=== PATIENT | male | born 1990 | race Two or more races ===

== ENCOUNTER 2020-03-14 21:35 | Emergency (ER) | payer OTHER ==
[~2020-03-14] VITALS: Ht 185.4 cm; Wt 127.0 kg
[2020-03-14] MEDS ORDERED: Neosporin Oint Ud Pkt TOPIC ONE (22:15)
[2020-03-14] MEDS ORDERED: ceFAZolin 2gm/50ml Premix 50 ML IVPB SCH (22:15)
--- NOTE | 2020-03-14 22:15 | Emergency Room Report ---
History of Present Illness General Chief Complaint: Animal Bite Source: Patient Present Illness HPI Patient is a 29-year-old male denies any significant past medical history who presents to the ER complaining of dog bites to his left upper extremity. Patient states that he was bit by his own dog who is a pit bull and lab mix. Patient states that his last tetanus was less than 5 years ago. Patient states that the incident occurred 1 hour prior to arrival. Patient denies any other trauma. He denies any fever or chills. 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 Patient History Reviewed Nursing Documentation: PMH: Agreed; PSxH: Agreed Nursing Documentation-PM Past Medical History: No Stated History Review of Systems All Other Systems: negative except mentioned in HPI Physical Exam Vital Signs Date Time Temp Pulse Resp B/P (MAP) Pulse Ox O2 Delivery O2 Flow Rate FiO2 03/14/20 21:41 98.2 90 18 137/79 (98) 97 Room Air Sp02 EP Interpretation: reviewed, normal General Appearance: no apparent distress, alert, GCS 15, non-toxic Head: normocephalic, atraumatic Eyes: bilateral eye normal inspection, bilateral eye PERRL ENT: hearing grossly normal, normal pharynx, no angioedema, normal voice Neck: full range of motion, supple/symm/no masses Respiratory: chest non-tender, lungs clear, normal breath sounds, speaking full sentences Cardiovascular #1: regular rate, rhythm, no edema Gastrointestinal: normal bowel sounds, non tender, soft, non-distended, no guarding, no rebound, overweight Rectal: deferred Genitourinary: no CVA tenderness Musculoskeletal: other - For dog bites 1 to the left wrist horizontal volar surface with minimal fat exposed approximately 3 cm, second is a puncture wound to the left wrist proximal to the ulnar styloid, third is a 6 cm superficial laceration left mid forearm volar surface fourth is a puncture wound to the left thenar eminence all wounds have some surrounding ecchymosis and swelling mild tenderness to palpation no active bleeding Neurologic: masonry installer III-XII nml as tested, oriented x3 Psychiatric: no suicidal/homicidal ideation Skin: no rash Lymphatic: no adenopathy Medical Decision Making Diagnostic Impression: Primary Impression: Bite by animal ER Course Local wound care has been performed. Patient given 900 mg of IV clindamycin. Patient given a sling to help him elevate his left upper extremity. Patient given very strict return precautions for any signs of local infection. Tetanus up-to-date. After discussing risks and benefits of further diagnostics, treatment plans, as well as indications for and risks of admission, the patient is agreeable to being discharged home. I have explained that their evaluation and treatment in the emergency department today is an important step towards them achieving better health but that their evaluation today is not intended to replace further evaluation and treatment by a physician in their local clinic. I have explained that while the current findings suggest no immediate life threatening emergency they will require further evaluation and treatment by a physician of their choice in their area. They understand that it will be necessary for them to review the final reports of their ED visit with their clinic physician. We have reviewed indications for return to the Emergency Department. I have explained that additional time may need to pass and/or additional testing as an outpatient may be necessary before a definitive diagnosis can be made. They tell me they are willing to follow up as instructed within the timeframe I recommend. They appear to understand what we discussed. Additionally they understand that if they are unable to be seen by an outpatient physician they are welcome, and in fact should, return to the Emergency Department for a repeat evaluation. The patient is stable at time of discharge. Other X-Ray Diagnostic Results Other X-Ray Diagnostic Results #1: X-Ray ordered: L wrist # of Views/Limited Vs Complete: 3 View Indication: Pain EP Interpretation: Yes Interpretation: no dislocation, no fractures, other - no foreign body Impression: No acute disease Electronically Signed by: Arielle Deal MD Other X-Ray Diagnostic Results #2: X-Ray ordered: L hand # of Views/Limited Vs Complete: 3 View Indication: Pain EP Interpretation: Yes Interpretation: no dislocation, no fractures, other - no foreign body Impression: No acute disease Electronically Signed by: Arielle Deal MD Last Vital Signs Date Time Temp Pulse Resp B/P (MAP) Pulse Ox O2 Delivery O2 Flow Rate FiO2 03/14/20 21:41 98.2 90 18 137/79 (98) 97 Room Air Disposition: HOME, SELF-CARE Condition: Stable Scripts Neomycin/Polymyxin/Bacitracin* (Triple Antibiotic Ointment*) 28 Gm Oint...g. 30 GM TOPIC TID, #30 GM Apply a thin film (amount equal to the surface area of the fingertip) to the affected area 3 times daily. Prov: Arielle Deal M.D. 03/14/20 Clindamycin Hcl (CLINDAMYCIN HCL) 300 Mg Capsule 300 MG ORAL FOUR TIMES A DAY for 10 Days, CAP Prov: Arielle Deal M.D. 03/14/20 Additional Instructions: The patient was provided with discharge instructions, notified to follow-up with a primary care doctor and or specialist in the next 24-48 hours, and to return to the ED if they have worsening of their symptoms. Please note that this report is being documented using Extend[employer] technology. This can lead to erroneous entry secondary to incorrect interpretation by the dictating instrument. Arielle Deal M.D. Mar 14, 2020 22:15
[2020-03-14] MEDS ORDERED: Clindamycin 900mg 50 ML IV ONE (22:30)
[2020-03-14] MEDS ORDERED: NEOSPORIN OINT30 GM TOPIC (22:38)
[2020-03-14] MEDS ORDERED: CLINDAMYCIN HC300 MG ORAL (22:38)
[2020-03-14 22:45] VITALS: BP 137/79
--- NOTE | 2020-03-15 16:17 | Diagnostic Imaging Report ---
Indication: Trauma, pain, laceration Technique: 3 views left hand Comparison: none Findings: No acute fractures. No dislocations. The joint spaces are preserved. Impression: Negative
--- NOTE | 2020-03-15 16:38 | Diagnostic Imaging Report ---
Clinical Indication:Pain, laceration, possible foreign body Technique: 3 views of the left wrist Comparison: None Findings: There is a soft tissue defect dorsally. No opaque foreign body demonstrated. No acute fractures, dislocations, or evidence of bony disruption Impression: Evidence of penetrating soft tissue trauma. No acute bony trauma or foreign body
== END 2020-03-14 22:45 | disposition home or self-care (01) ==
LOC: EMR 22:19
DX: S61.552A Open bite of left wrist, initial encounter (principal); S50.872A Other superficial bite of left forearm, initial encounter; S60.572A Other superficial bite of hand of left hand, initial encounter; W54.0XXA Bitten by dog, initial encounter; Y93.9 Activity, unspecified; Y92.9 Unspecified place or not applicable
CPT/HCPCS: 73110; 73130; 96365; J0690; S0077; Z7502; 99284